=== PATIENT | male | born 1965 | race Two or more races ===

== ENCOUNTER 2023-10-12 19:05 | Inpatient (IN) | payer MEDICAID, OTHER ==
[~2023-10-12] VITALS: Ht 177.8 cm; Wt 114.8 kg
[2023-10-12 21:42] LABS: INR 1.1 (0.9-1.15); Partial Thromboplastin Time 29.3 SEC (24.5-34.5); Prothrombin Time 11.6 sec (9.3-11.8)
[2023-10-12 21:43] LABS: Alanine Aminotransferase 123 U/L (7-40); Albumin 3.7 g/dL (3.2-4.8); Alkaline Phosphatase 149 U/L (46-116); Anion Gap 6 (5-15); Aspartate Aminotransferase 151 U/L (13-40); BUN/Creatinine Ratio 17.2 (10.0-20.0); Bilirubin, Total 0.7 mg/dL (0.2-1.0); Blood Alcohol < 3.0 mg/dL (<10); Blood Urea Nitrogen 16 mg/dL (9-23); Carbon Dioxide 27 mmol/L (20-30); Chloride 95 mmol/L (98-107); Glucose 175 mg/dL (74-106); Potassium 3.7 mmol/L (3.5-5.1); Sodium 128 mmol/L (136-145); Total Protein 6.9 g/dL (5.7-8.2)
[2023-10-12 21:51] LABS: Basophils # (auto) 0.1 10 ^3/uL (0-0.2); Basophils % (auto) 0.4 % (0.0-2.0); Eosinophils # (auto) 0.3 10 ^3/uL (0-0.8); Eosinophils % (auto) 1.8 % (0.0-7.0); Hematocrit 39.7 % (41.0-53.0); Hemoglobin 13.7 g/dL (13.5-17.5); Lymphocytes # (auto) 0.7 10 ^3/uL (0.4-5.4); Mean Corpuscular Hemoglobin 30.3 pg (28.0-32.0); Mean Corpuscular Hgb Conc. 34.6 g/dL (32.0-36.0); Mean Corpuscular Volume 87.6 fL (80.0-100.0); Monocytes # (auto) 1.3 10 ^3/uL (0-1.3); Monocytes % (auto) 7.8 % (0.0-12.0); Neutrophils # (auto) 14.7 10 ^3/uL (1.6-8.6); Platelet Count (auto) 502 10^3/uL (140-450); Red Blood Cells 4.53 10^6/uL (4.5-5.90); Red Cell Distribution Width 14.6 % (11.8-14.3)
[2023-10-13 12:47] VITALS: PULSE 87; RESP 16; O2SAT 98
[2023-10-13 20:29] LABS: Hematocrit 39.1 % (41.0-53.0); Hemoglobin 13.9 g/dL (13.5-17.5); Mean Corpuscular Hgb Conc. 35.6 g/dL (32.0-36.0); Mean Corpuscular Volume 87.2 fL (80.0-100.0); Platelet Count (auto) 551 10^3/uL (140-450); Red Blood Cells 4.49 10^6/uL (4.5-5.90); Red Cell Distribution Width 13.9 % (11.8-14.3); White Blood Cell 22.4 10^3/uL (4.4-10.8)
[2023-10-13 20:33] LABS: Basophils % (manual) 0 (0.0-2.0); Blast Cells 0; Promyelocytes % 0; Reactive Lymphocytes 0
[2023-10-13 20:47] LABS: INR 1.18 (0.9-1.15); Partial Thromboplastin Time 29.6 SEC (24.5-34.5); Prothrombin Time 12.4 sec (9.3-11.8)
[2023-10-13 20:49] LABS: Alanine Aminotransferase 127 U/L (7-40); Albumin 3.7 g/dL (3.2-4.8); Alkaline Phosphatase 139 U/L (46-116); Anion Gap 6 (5-15); Aspartate Aminotransferase 127 U/L (13-40); BUN/Creatinine Ratio 18.5 (10.0-20.0); Blood Urea Nitrogen 15 mg/dL (9-23); Calcium 9.5 mg/dL (8.7-10.4); Carbon Dioxide 28 mmol/L (20-30); Chloride 92 mmol/L (98-107); Glucose 138 mg/dL (74-106); Potassium 4.3 mmol/L (3.5-5.1); Sodium 126 mmol/L (136-145)
[2023-10-13 20:50] LABS: Bilirubin, Total 0.9 mg/dL (0.2-1.0); Total Protein 7.1 g/dL (5.7-8.2)
[2023-10-13 20:55] LABS: Band Neutrophils % (manual) 2
[2023-10-13 20:56] LABS: Eosinophils % (manual) 2 (0-7); Lymphocytes % (manual) 4 (10.0-50.0); Metamyelocytes % 1; Monocytes % (manual) 5 (0-12); Myelocytes % 1; Platelet Estimate Increased
[2023-10-13 20:57] LABS: Large Platelets FEW; RBC Morphology Normal
[2023-10-13] MEDS: PIPERACILLIN-TAZOB 3.375GM 100 ML IV ONE (21:33)
[2023-10-13] MEDS ORDERED: hydrALAZINE HCL 20 MG/ML VL IV PRN (22:30)
[2023-10-13] MEDS ORDERED: NITROGLYCERIN 0.4 MG SL TAB SL PRN (22:30)
[2023-10-13] MEDS ORDERED: ACETAMINOPHEN 325 MG TAB PO PRN (22:30)
[2023-10-13] MEDS ORDERED: HYDROcodone-ACET 5/325MG TAB PO PRN (22:30)
[2023-10-13] MEDS ORDERED: MORPHINE SULFATE INJ 2 MG/ml SYRG IV PRN ×2 (22:30)
[2023-10-13] MEDS ORDERED: ONDANSETRON HCL 4 MG/2 ML VIAL IV PRN (22:30)
[2023-10-13] MEDS ORDERED: IBUPROFEN 600 MG TAB PO PRN (23:15)
[2023-10-13] MEDS: SODIUM CHLORIDE 0.9% 1,000 ML IV SCH (23:30)
[2023-10-14] VITALS (8 sets, daily range): BP systolic 127–130; BP diastolic 74–78; PULSE 80–87; RESP 16–22; TEMP 98.5–98.9; O2SAT 88–98
[2023-10-14 05:03] LABS: Hemoglobin 12.7 g/dL (13.5-17.5); Mean Corpuscular Hgb Conc. 34.6 g/dL (32.0-36.0); Red Blood Cells 4.19 10^6/uL (4.5-5.90)
[2023-10-14 05:09] LABS: Hematocrit 36.8 % (41.0-53.0); Mean Corpuscular Hemoglobin 30.4 pg (28.0-32.0); Mean Corpuscular Volume 87.8 fL (80.0-100.0); Platelet Count (auto) 490 10^3/uL (140-450); Red Cell Distribution Width 13.8 % (11.8-14.3); White Blood Cell 19.8 10^3/uL (4.4-10.8)
[2023-10-14 05:14] LABS: Band Neutrophils % (manual) 0; Basophils % (manual) 0 (0.0-2.0); Blast Cells 0; Metamyelocytes % 0; Myelocytes % 0; Promyelocytes % 0; Reactive Lymphocytes 0
[2023-10-14 05:21] LABS: Alanine Aminotransferase 134 U/L (7-40); Albumin 3.3 g/dL (3.2-4.8); Alkaline Phosphatase 126 U/L (46-116); Anion Gap 7 (5-15); Aspartate Aminotransferase 151 U/L (13-40); Bilirubin, Total 0.6 mg/dL (0.2-1.0); Blood Urea Nitrogen 16 mg/dL (9-23); Calcium 8.7 mg/dL (8.7-10.4); Carbon Dioxide 25 mmol/L (20-30); Chloride 93 mmol/L (98-107); Glucose 177 mg/dL (74-106); Sodium 125 mmol/L (136-145); Total Protein 6.3 g/dL (5.7-8.2)
[2023-10-14] MEDS: PIPERACILLIN-TAZOB 3.375GM 100 ML IV SCH (06:15)
[2023-10-14 06:53] LABS: Eosinophils % (manual) 3 (0-7); Lymphocytes % (manual) 5 (10.0-50.0); Monocytes % (manual) 9 (0-12)
[2023-10-14 06:54] LABS: Platelet Estimate Increased
[2023-10-14] MEDS: FAMOTIDINE (10MG/ML) 2ML VL IV SCH (10:09)
[2023-10-14] MEDS: ENOXAPARIN SOD 40 MG/0.4 ML SYRINGE SC SCH (10:10)
[2023-10-14] MEDS: SODIUM CHLORIDE 0.9% 1,000 ML IV SCH (13:57)
[2023-10-14] MEDS ORDERED: VANCOMYCIN PER PHARMACY 0 MG IV SCH (14:45)
[2023-10-14] MEDS: VANCOMYCIN 1GM/200ML 200 ML IV SCH (17:39)
[2023-10-15] VITALS (9 sets, daily range): BP systolic 115–129; BP diastolic 53–77; PULSE 78–87; RESP 16–20; TEMP 98.4–99.8; O2SAT 95–98
[2023-10-15] MEDS: VANCOMYCIN 1GM/200ML 200 ML IV SCH (03:27)
[2023-10-15 06:32] LABS: Basophils # (auto) 0.1 10 ^3/uL (0-0.2); Basophils % (auto) 0.6 % (0.0-2.0); Eosinophils # (auto) 0.4 10 ^3/uL (0-0.8); Lymphocytes % (auto) 6.6 % (10.0-50.0); Mean Corpuscular Volume 87.7 fL (80.0-100.0); Monocytes # (auto) 1.4 10 ^3/uL (0-1.3); Red Cell Distribution Width 14.1 % (11.8-14.3)
[2023-10-15 06:36] LABS: Eosinophils % (auto) 2.9 % (0.0-7.0); Hematocrit 33.5 % (41.0-53.0); Hemoglobin 11.5 g/dL (13.5-17.5); Mean Corpuscular Hemoglobin 30.2 pg (28.0-32.0); Mean Corpuscular Hgb Conc. 34.4 g/dL (32.0-36.0); Monocytes % (auto) 10.1 % (0.0-12.0); Neutrophils # (auto) 11.4 10 ^3/uL (1.6-8.6); Neutrophils % (auto) 79.8 % (37.0-80.0); Platelet Count (auto) 521 10^3/uL (140-450); Red Blood Cells 3.82 10^6/uL (4.5-5.90); White Blood Cell 14.3 10^3/uL (4.4-10.8)
[2023-10-15 06:51] LABS: Alanine Aminotransferase 181 U/L (7-40); Albumin 2.9 g/dL (3.2-4.8); Alkaline Phosphatase 107 U/L (46-116); Anion Gap 3 (5-15); BUN/Creatinine Ratio 21.7 (10.0-20.0); Blood Urea Nitrogen 18 mg/dL (9-23); Calcium 8.3 mg/dL (8.7-10.4); Carbon Dioxide 28 mmol/L (20-30); Chloride 100 mmol/L (98-107); Glucose 108 mg/dL (74-106)
[2023-10-15 06:52] LABS: Aspartate Aminotransferase 215 U/L (13-40); Bilirubin, Total 0.3 mg/dL (0.2-1.0); Total Protein 5.8 g/dL (5.7-8.2)
[2023-10-15 07:02] LABS: Sodium 131 mmol/L (136-145)
[2023-10-15 08:09] LABS: Urine Bacteria None Seen /hpf (None Seen)
[2023-10-15 08:21] LABS: Urine Blood Negative /uL (Negative); Urine Clarity Clear (Clear); Urine Color Yellow (Yellow); Urine Protein, UAD Negative (Negative); Urine Urobilinogen 6 mg/dL (Negative); Urine WBC 8 /hpf (0 - 3)
[2023-10-15 08:59] LABS: Hepatitis B Surface Antigen Negative (Negative)
[2023-10-15 09:18] LABS: Hepatitis B Core IgM Negative
[2023-10-15 09:20] LABS: Hepatitis A Ab IgM Negative
[2023-10-15 09:21] LABS: Hepatitis C Antibody Negative (Negative)
[2023-10-15 10:09] LABS: Amphetamine Screen, Urine Neg (NEGATIVE); Barbiturate Scree,Urine Neg (NEGATIVE); Benzodiazephine Screen, Urine Neg (NEGATIVE); Cannabinoid Screen, Urine Neg (NEGATIVE); Cocaine Screen, Urine Neg (NEGATIVE); Opiate Scree,Urine Neg (NEGATIVE); Phencyclidine Screen, Urine Neg (NEGATIVE)
[2023-10-15] MEDS: FUROSEMIDE 20 MG/2 ML VIAL IV ONE (10:54)
[2023-10-15] MEDS: ACETAMINOPHEN 325 MG TAB PO PRN (16:02)
[2023-10-15] MEDS: FUROSEMIDE 20 MG/2 ML VIAL IV SCH (18:17)
[2023-10-15] MEDS: PIPERACILLIN-TAZOB 3.375GM 100 ML IV SCH (19:43)
[2023-10-16] VITALS (8 sets, daily range): BP systolic 124–145; BP diastolic 66–86; PULSE 68–89; RESP 18–20; TEMP 98.8–100.4; O2SAT 90–99
[2023-10-16 10:07] LABS: Anti-Nuclear Antibody Direct Negative (Negative)
[2023-10-16 11:21] LABS: Basophils # (auto) 0.1 10 ^3/uL (0-0.2); Eosinophils # (auto) 0.2 10 ^3/uL (0-0.8); Lymphocytes # (auto) 0.7 10 ^3/uL (0.4-5.4); Lymphocytes % (auto) 6.3 % (10.0-50.0)
[2023-10-16 11:22] LABS: Basophils % (auto) 0.7 % (0.0-2.0); Eosinophils % (auto) 2.2 % (0.0-7.0); Hematocrit 36.4 % (41.0-53.0); Hemoglobin 12.4 g/dL (13.5-17.5); Mean Corpuscular Hemoglobin 30.1 pg (28.0-32.0); Mean Corpuscular Hgb Conc. 34.2 g/dL (32.0-36.0); Mean Corpuscular Volume 88.1 fL (80.0-100.0); Monocytes # (auto) 1.1 10 ^3/uL (0-1.3); Monocytes % (auto) 10.6 % (0.0-12.0); Neutrophils # (auto) 8.7 10 ^3/uL (1.6-8.6); Neutrophils % (auto) 80.2 % (37.0-80.0); Red Blood Cells 4.13 10^6/uL (4.5-5.90); Red Cell Distribution Width 14.1 % (11.8-14.3); White Blood Cell 10.8 10^3/uL (4.4-10.8)
[2023-10-16 11:32] LABS: Platelet Count (auto) 533 10^3/uL (140-450)
[2023-10-16 11:53] LABS: Alanine Aminotransferase 166 U/L (7-40); Albumin 3.2 g/dL (3.2-4.8); Alkaline Phosphatase 105 U/L (46-116); Anion Gap 3 (5-15); Aspartate Aminotransferase 147 U/L (13-40); BUN/Creatinine Ratio 17.9 (10.0-20.0); Blood Urea Nitrogen 15 mg/dL (9-23); Calcium 8.7 mg/dL (8.7-10.4); Carbon Dioxide 30 mmol/L (20-30); Chloride 97 mmol/L (98-107); Glucose 132 mg/dL (74-106); Potassium 4.1 mmol/L (3.5-5.1); Sodium 130 mmol/L (136-145)
[2023-10-16 11:54] LABS: Bilirubin, Total 0.4 mg/dL (0.2-1.0); Total Protein 6.4 g/dL (5.7-8.2)
[2023-10-16] MEDS: FUROSEMIDE 20 MG/2 ML VIAL IV SCH (14:00)
[2023-10-17] VITALS (9 sets, daily range): BP systolic 119–136; BP diastolic 64–80; PULSE 79–86; RESP 19–20; TEMP 98.5–101; O2SAT 92–98
[2023-10-17] MEDS: MELATONIN 5 MG TAB PO PRN (21:05)
[2023-10-17] MEDS ORDERED: MELATONIN 5 MG TAB PO SCH (22:00)
[2023-10-18] VITALS (7 sets, daily range): BP systolic 115–137; BP diastolic 66–77; PULSE 72–90; RESP 17–22; TEMP 97.8–98.8; O2SAT 93–96
[2023-10-19] VITALS (7 sets, daily range): BP systolic 105–142; BP diastolic 54–81; PULSE 64–85; RESP 17–20; TEMP 98.1–99.2; O2SAT 95–97
[2023-10-19] MEDS: VANCOMYCIN 1GM/200ML 200 ML IV ONE (03:34)
[2023-10-19] MEDS: VANCOMYCIN 1,500 MG in D5W 5% 250 ML IV SCH (13:18)
[2023-10-19] MEDS: PIPERACILLIN-TAZOB 3.375GM 100 ML IV SCH (13:19)
[2023-10-20] VITALS (7 sets, daily range): BP systolic 105–147; BP diastolic 58–92; PULSE 80–83; RESP 18–20; TEMP 97.5–98.9; O2SAT 94–96
[2023-10-20 08:34] LABS: Anion Gap 2 (5-15); Carbon Dioxide 35 mmol/L (20-30); Chloride 93 mmol/L (98-107); Sodium 130 mmol/L (136-145)
[2023-10-20 08:35] LABS: Calcium 9.3 mg/dL (8.7-10.4)
[2023-10-20 08:40] LABS: Blood Urea Nitrogen 16 mg/dL (9-23); Glucose 110 mg/dL (74-106)
[2023-10-20] MEDS: VANCOMYCIN 1.5GM/300ML 300 ML IV SCH (12:26)
[2023-10-20] MEDS: CLINDAMYCIN HCL 150 MG CAP PO SCH (22:08)
[2023-10-21 05:00] VITALS: BP 108/60; PULSE 85; RESP 18; TEMP 98.7; O2SAT 92
[2023-10-21 08:00] VITALS: BP 148/67; PULSE 84; RESP 18; TEMP 98.2; O2SAT 93
[2023-10-21] MEDS: levoFLOXacin 500 MG TAB PO SCH (10:01)
[2023-10-21 11:39] VITALS: BP 139/71; PULSE 79; RESP 18; TEMP 98.3; O2SAT 93
[2023-10-21 16:45] VITALS: BP 104/69; PULSE 82; RESP 20; TEMP 97.9; O2SAT 98
[2023-10-21 20:00] VITALS: PULSE 86; RESP 17; O2SAT 97
[2023-10-21 21:00] VITALS: BP 121/68; PULSE 86; RESP 17; TEMP 99.6; O2SAT 97
[2023-10-22 05:00] VITALS: BP 132/84; PULSE 86; RESP 18; TEMP 98.7; O2SAT 94
[2023-10-22 08:15] VITALS: BP 136/76; PULSE 85; RESP 20; TEMP 98.7; O2SAT 94
[2023-10-22] MEDS ORDERED: CLIN150C18 PO (10:34)
[2023-10-22] MEDS ORDERED: LEVO500T91 PO (10:34)
[2023-10-22] MEDS ORDERED: TRIA37.587 PO (10:34)
[2023-10-22 12:20] VITALS: BP 110/74; PULSE 88; RESP 20; TEMP 98.3; O2SAT 96
[2023-10-22 16:05] VITALS: BP 145/85; PULSE 83; RESP 20; TEMP 99.4; O2SAT 95
[2023-10-22 20:00] VITALS: PULSE 91; RESP 16; O2SAT 97
[2023-10-22 21:00] VITALS: BP 124/69; PULSE 91; RESP 16; TEMP 99.2; O2SAT 97
[2023-10-23] VITALS (8 sets, daily range): BP systolic 107–144; BP diastolic 49–86; PULSE 82–90; RESP 16–20; TEMP 97.8–98.8; O2SAT 92–97
[2023-10-24 05:00] VITALS: BP 135/86; PULSE 88; RESP 19; TEMP 98.2; O2SAT 94
[2023-10-24 09:00] VITALS: BP 107/62; PULSE 63; RESP 17; TEMP 97.9; O2SAT 94
[2023-10-24 13:00] VITALS: BP 116/66; PULSE 81; RESP 16; TEMP 98.5; O2SAT 93
[2023-10-24 17:00] VITALS: BP 104/70; PULSE 86; RESP 17; TEMP 98.1; O2SAT 95
[2023-10-24 21:00] VITALS: BP 109/50; PULSE 90; RESP 17; TEMP 98.3; O2SAT 96
[2023-10-25] VITALS (8 sets, daily range): BP systolic 88–133; BP diastolic 46–86; PULSE 68–88; RESP 16–18; TEMP 97.3–99.7; O2SAT 91–96
[2023-10-26] VITALS (8 sets, daily range): BP systolic 109–149; BP diastolic 68–86; PULSE 60–90; RESP 16–20; TEMP 97.7–99.4; O2SAT 93–98
[2023-10-27] VITALS (7 sets, daily range): BP systolic 103–126; BP diastolic 60–81; PULSE 81–91; RESP 16–21; TEMP 98–99.2; O2SAT 92–96
[2023-10-28 05:00] VITALS: BP 108/80; PULSE 85; RESP 17; TEMP 98.6; O2SAT 90
[2023-10-28 08:00] VITALS: RESP 16
[2023-10-28 08:57] VITALS: BP 144/85; PULSE 82; RESP 18; TEMP 98; O2SAT 94
[2023-10-28] MEDS: DOCUSATE SOD 100 MG CAP PO PRN (10:25)
[2023-10-28 13:00] VITALS: BP 102/60; PULSE 85; RESP 19; TEMP 98.4; O2SAT 93
[2023-10-28 15:46] VITALS: BP 126/76; PULSE 65; RESP 18; TEMP 98.3; O2SAT 98
[2023-10-28 17:00] VITALS: BP 123/86; PULSE 82; RESP 18; TEMP 98.7; O2SAT 95
== END 2023-10-28 17:40 | DRG 720 ==
LOC: ER 19:05 → EDBD 19:05 → EDSEX 19:05 → TELE 10-13 22:41 → TELE-WESTW 10-14 10:36 → WEST WING 10-20 21:10
PROVIDERS: ADMIT Internal Medicine; ATTEND Internal Medicine
DX: A41.9 Sepsis, unspecified organism (principal); I50.43 Acute on chronic combined systolic (congestive) and diastolic (congestive) heart failure; E87.1 Hypo-osmolality and hyponatremia; L03.116 Cellulitis of left lower limb; B35.1 Tinea unguium; D64.9 Anemia, unspecified; K75.81 Nonalcoholic steatohepatitis (NASH); I11.0 Hypertensive heart disease with heart failure; D75.838 Other thrombocytosis; F15.10 Other stimulant abuse, uncomplicated; F17.210 Nicotine dependence, cigarettes, uncomplicated; J44.9 Chronic obstructive pulmonary disease, unspecified; E66.01 Morbid (severe) obesity due to excess calories; M21.6X2 Other acquired deformities of left foot; M71.22 Synovial cyst of popliteal space [Baker], left knee; Z59.00 Homelessness unspecified; Z68.38 Body mass index [BMI] 38.0-38.9, adult
CPT/HCPCS: 36415; 71045; 73610; 73630; 76705; 80048; 80053; 80074; 80202; 80307; 80320; 81001; 82565; 82728; 83605; 83880; 84484; 85007; 85025; 85027; 85379; 85610; 85730; 86038; 87040; 93306; 93971; 97110; 97116; 97163; 97530; G0378; J2543; J3490; J7060